=== PATIENT | male | born 1985 | race Caucasian/White ===

== ENCOUNTER 2018-11-30 10:13 | Outpatient (CLI) | payer BC, SELFPAY ==
[2018-11-30 12:29] LABS: ALT 36 U/L (12-78); AST 17 U/L (15-37); Albumin 4.2 g/dL (3.4-5.0); Alkaline Phosphatase 104 U/L (46-116); Anion Gap 11.3 mmol/L (3-11); BUN 15 mg/dL (7-18); Bilirubin, Total 0.4 mg/dL (0.2-1.0); CO2 27.7 mmol/L (21.0-32.0); CREATININE 0.96 mg/dL (0.70-1.30); Chloride 102 mmol/L (98-107); Cholesterol 231 mg/dL (50-200); Glucose 94 mg/dL (70-100); HDL Cholesterol 33 mg/dL (40-60); LDL CHOLESTEROL 147 mg/dL (<100); Potassium 4.5 mmol/L (3.5-5.1); Sodium 141 mmol/L (136-145); Total Protein 7.6 g/dL (6.4-8.2); Triglyceride 236 mg/dL (30-150)
[2018-11-30 12:35] LABS: Calcium 9.5 mg/dL (8.5-10.1)
[2018-12-03 08:11] LABS: Vitamin D 25 Total 16.9 ng/ml (30-100)
== END 2018-11-30 10:33 ==
PROVIDERS: PCP Internal Medicine; Visit Provider Nurse Practitioner Family
DX: F33.3 Major depressive disorder, recurrent, severe with psychotic symptoms (principal); E55.9 Vitamin D deficiency, unspecified; Z79.899 Other long term (current) drug therapy
CPT/HCPCS: 36415; 80053; 80061; 82306; 83721

== ENCOUNTER 2023-10-27 02:30 | Outpatient (CLI) | payer OTHER, SELFPAY ==
[2023-10-27 07:31] LABS: HCT 45.2 % (40.0-50.0); HGB 15.6 g/dL (13.5-17.5); MCH 30.4 pg (27.0-33.0); MCHC 34.5 % (32.0-36.0); MCV 88 fL (80-95); MPV 10.1 fL (8.0-11.0); Platelet Count 237 10^3/uL (130-400); RBC 5.14 10^6/uL (4.36-5.78); RDW 12.9 % (11.8-14.1); RDW-SD 42.1 fL; WBC 5.19 10^3/uL (4.4-10.8)
[2023-10-27 07:52] LABS: Hemoglobin A1C 5.7 % (<5.7)
[2023-10-27 08:18] LABS: Vitamin D 25 Total 41.6 ng/mL (30-100)
[2023-10-27 08:19] LABS: ALT 39 U/L (16-63); AST 18 U/L (15-37); Albumin 4.1 g/dL (3.4-5.0); Alkaline Phosphatase 97 U/L (46-116); Anion Gap 9.8 mmol/L (3-11); BUN 16 mg/dL (7-18); Bilirubin, Total 0.5 mg/dL (0.2-1.0); CO2 27.2 mmol/L (21.0-32.0); Calcium 9.4 mg/dL (8.5-10.1); Calculated LDL 129 mg/dL (<100); Chloride 103 mmol/L (98-107); Cholesterol 195 mg/dL (<200); Ferritin 278 ng/mL (26-388); Glucose 102 mg/dL (74-106); HDL Cholesterol 38 mg/dL (40-60); Potassium 4.3 mmol/L (3.5-5.1); Sodium 140 mmol/L (136-145); TSH (W/Ref FT4) 2.26 uIU/mL (0.36-3.74); Total Protein 7.7 g/dL (6.4-8.2); Triglyceride 142 mg/dL (<150); Vitamin B12 271 pg/mL (193-986)
[2023-10-27 08:36] LABS: Iron 87 ug/dL (65-175); Total Iron Binding Capacity 289 ug/dL (250-450); Transferrin Sat 30 % (20-55)
== END 2023-10-27 02:31 | disposition home or self-care (01) ==
PROVIDERS: PCP Internal Medicine; Visit Provider Nurse Practitioner Psychiatric/Mental Health
DX: Z79.899 Other long term (current) drug therapy (principal); F31.81 Bipolar II disorder
CPT/HCPCS: 36415; 80053; 80061; 82306; 85027; 82607; 82728; 83036; 83540; 83550; 84443; 85025

== ENCOUNTER 2025-05-12 01:46 | Outpatient (CLI) | payer OTHER, SELFPAY ==
[2025-05-12 08:09] LABS: Calculated LDL 144 mg/dL (<100); Cholesterol 222 mg/dL (<200); HDL Cholesterol 35 mg/dL (>or=40); Triglyceride 219 mg/dL (<150)
[2025-05-12 08:18] LABS: Hemoglobin A1C 5.7 % (<5.7)
== END 2025-05-12 01:47 | disposition home or self-care (01) ==
PROVIDERS: PCP Internal Medicine; Visit Provider Nurse Practitioner Psychiatric/Mental Health
DX: Z79.899 Other long term (current) drug therapy (principal)
CPT/HCPCS: 36415; 80061; 83036